=== PATIENT | male | born 1965 | race Two or more races ===

== ENCOUNTER 2017-02-22 14:02 | Inpatient (IN) | payer OTHER ==
[2017-02-22 17:05] VITALS: BMI 37.2
--- NOTE | 2017-02-22 18:37 | HP ---
CIWA Score - CIWA Score Nausea/Vomitin-Mild Nausea/No Vomiting Muscle Tremors: 4-Moderate,w/Arms Extend Anxiety: 4-Mod. Anxious/Guarded Agitation: 4-Moderately Restless Paroxysmal Sweats: 1-Minimal Palms Moist Orientation: 1-Uncertain about Date Tacttile Disturbances: 0-None Auditory Disturbances: 0-None Visual Disturbances: 0-None Headache: 0-None Present CIWA-Ar Total Score: 15 Admission ROS [facility] - HPI Chief Complaint: WITHDRAWAL SX Allergies/Adverse Reactions: Allergies Allergy/AdvReac Type Severity Reaction Status Date / Time No Known Allergies Allergy Verified 02/22/17 17:36 History of Present Illness: 52 YEARS OLD MALE WITH LONG HISTORY OF ALCOHOL DEPENDENCE GASTRIC BY PASS 1996 HAS DEPRESSION IS ADMITTED TO DETOX Exam Limitations: No Limitations - Ebola screening Have you traveled outside of the country in the last 21 days: No Have you had contact with anyone from an Ebola affected area: No Have you been sick,other than usual withdrawal symptoms: No Do you have a fever: No - Review of Systems Constitutional: Chills, Weight Stable EENT: reports: No Symptoms Reported Respiratory: reports: No Symptoms reported Cardiac: reports: No Symptoms Reported GI: reports: Nausea, Poor Fluid Intake, Abdominal cramping : reports: No Symptoms Reported Musculoskeletal: reports: No Symptoms Reported Integumentary: reports: Bruising, Change in Color (FOREHEAD FELL 02/[address] [facility] NEGATIVE CT HEAD) Neuro: reports: Tremors Endocrine: reports: No Symptoms Reported Hematology: reports: No Symptoms Reported Psychiatric: reports: Judgement Intact, Anxious, Depressed Other Systems: Reviewed and Negative Patient History - Patient Medical History Hx Anemia: No Hx Asthma: No Hx Chronic Obstructive Pulmonary Disease (COPD): No Hx Cancer: No Hx Cardiac Disorders: No Hx Congestive Heart Failure: No Hx Hypertension: No Hx Hypercholesterolemia: No Hx Pacemaker: No HX Cerebrovascular Accident: No Hx Seizures: No Hx Dementia: No Hx Diabetes: No Hx Gastrointestinal Disorders: No Hx Liver Disease: No Hx Genitourinary Disorders: No Hx Sexually Transmitted Disorders: No Hx Renal Disease (ESRD): No Hx Thyroid Disease: No Hx Human Immunodeficiency Virus (HIV): No Hx Hepatitis C: No Hx Depression: Yes Hx Suicide Attempt: No Hx Bipolar Disorder: No Hx Schizophrenia: No - Patient Surgical History Past Surgical History: Yes Hx Abdominal Surgery: Yes (1996) Anesthesia Reaction: No - PPD History Previous Implant?: Yes Documented Results: Negative w/o proof Implanted On Prior [facility] Admission?: No PPD to be Administered?: Yes - Smoking Cessation Smoking history: Former smoker Have you smoked in the past 12 months: No Aproximately how many cigarettes per day: 0 Hx Chewing Tobacco Use: No Initiated information on smoking cessation: No - Substance & Tx. History Hx Alcohol Use: Yes Hx Substance Use: No Substance Use Type: Alcohol Hx Substance Use Treatment: No - Substances Abused Alcohol Route: Oral Frequency: Daily Amount used: 20 BEERS X40 OZ Age of first use: 18 Date of Last Use: 02/22/17 Family Disease History - Family Disease History Family Disease History: Diabetes: Mother, [place]: Father (), Other: Father Admission Physical Exam [facility] - Vital Signs Vital Signs: Vital Signs - 24 hr 02/22/17 17:03 Temperature 98.0 F Pulse Rate 102 H Respiratory 18 Rate Blood Pressure 141/90 - Physical General Appearance: Yes: Appropriately Dressed, Moderate Distress, Alcohol on Breath, Obese, Tremorous, Irritable, Sweating, Anxious HEENTM: Yes: Hearing grossly Normal, Normal ENT Inspection, Normocephalic, Normal Voice Respiratory: Yes: Chest Non-Tender, Lungs Clear, Normal Breath Sounds, No Respiratory Distress, No Accessory Muscle Use Neck: Yes: Supple, Trachea in good position Breast: Yes: Breasts Symetrical Cardiology: Yes: Regular Rhythm, S1, S2, Tachycardia Abdominal: Yes: Normal Bowel Sounds, Non Tender, Soft Genitourinary: Yes: Within Normal Limits Back: Yes: Normal Inspection Musculoskeletal: Yes: full range of Motion, Gait Steady Extremities: Yes: Normal Inspection, Normal Range of Motion, Non-Tender, Tremors Neurological: Yes: Alert, Motor Strength 5/5, Normal Response, Depressed Affect Integumentary: Yes: Warm Lymphatic: Yes: Within Normal Limits - Diagnostic (1) Alcohol dependence with uncomplicated withdrawal Current Visit: Yes Status: Acute (2) Gastric bypass status for obesity Current Visit: Yes Status: Resolved Comment: 1996 (3) Depression (emotion) Current Visit: Yes Status: Suspected Qualifiers: Depression Type: dysthymia Qualified Code(s): F34.1 - Dysthymic disorder Cleared for Admission [facility] - Detox or Rehab [facility] Level of Care: Medically Managed Detox Regimen/Protocol: Librium BHS Breath Alcohol Content Breath Alcohol Content: 0.249 Urine Drug Screen - Results Drug Screen Negative: Yes
[2017-02-22] MEDS ORDERED: ACETAMINOPHEN 325 MG TABLET (FP) PO PRN (18:44)
[2017-02-22] MEDS ORDERED: guaiFENesin/D-METHORPHAN HB 10 ML UNIT-DOSE CUPS PO PRN (18:44)
[2017-02-22] MEDS ORDERED: P-EPHED 60MG/TRIPROLIDI 2.5MG TABLET PO PRN (18:44)
[2017-02-22] MEDS ORDERED: MAGNESIUM HYDROX 2400MG/30ML ORAL SUSPENSION 30 ML CUP PO PRN (18:44)
[2017-02-22] MEDS ORDERED: LOPERAMIDE HCL 2 MG CAPSULE PO PRN (18:44)
[2017-02-22] MEDS ORDERED: MAGNESIUM CITRATE 300 ML BOTTLE PO PRN (18:44)
[2017-02-22] MEDS ORDERED: IBUPROFEN 400 MG TABLET (FP) PO PRN (18:44)
[2017-02-22] MEDS ORDERED: MENTHOL/PHENOL 1 EACH UD MM PRN (18:44)
[2017-02-22] MEDS ORDERED: MAG HYDROX/AL HYDROX/SIMETH 30 ML UNIT-DOSE CUP PO PRN (18:44)
[2017-02-22] MEDS: chlordiazePOXIDE HCL 25 MG CAPSULE PO PRN (20:33)
[2017-02-22] MEDS: THIAMINE HCL 100 MG TABLET (FP) PO SCH (22:07)
[2017-02-22] MEDS: chlordiazePOXIDE HCL 25 MG CAPSULE PO SCH (22:07)
[2017-02-22 23:10] LABS: URINE APPEARANCE CLEAR; URINE BILIRUBIN NEGATIVE (NEGATIVE); URINE BLOOD NEGATIVE (NEGATIVE); URINE COLOR STRAW; URINE GLUCOSE (UA) 3+ (NEGATIVE); URINE KETONE NEGATIVE (NEGATIVE); URINE NITRITE NEGATIVE (NEGATIVE); URINE PROTEIN NEGATIVE (NEGATIVE); URINE UROBILINOGEN NEGATIVE mg/dL (0.2-1.0)
[2017-02-23] MEDS: chlordiazePOXIDE HCL 25 MG CAPSULE PO PRN ×3 (02:11→12:33)
[2017-02-23] MEDS: chlordiazePOXIDE HCL 25 MG CAPSULE PO SCH ×4 (05:59→22:00)
[2017-02-23] MEDS ORDERED: diphenhydrAMINE HCL 50 MG CAPSULE PO PRN (09:53)
[2017-02-23] MEDS: PRENATAL VITAMINS W/ FOLIC ACID TABLET (FP) PO SCH (10:02)
[2017-02-23 10:10] LABS: MCHC 31.8 g/dl (32.0-35.9); MEAN CELL VOLUME 78.6 fl (80-96); MEAN PLT VOLUME 9.1 fl (7.5-11.1); PLATELET COUNT 207 K/MM3 (134-434); WHITE BLOOD COUNT 6.1 K/mm3 (4.0-10.0)
[2017-02-23] MEDS ORDERED: cloNIDine HCL 0.1 MG TABLET PO ONE (10:15)
[2017-02-23 10:29] LABS: URINE LEUK ESTERASE Negative (NEGATIVE)
[2017-02-23 10:30] LABS: ALBUMIN 3.3 g/dl (3.4-5.0); ALK PHOS 98 U/L (45-117); ANION GAP 10 (8-16); BILIRUBIN,TOTAL 0.9 mg/dL (0.2-1.0); CALCIUM 7.8 mg/dL (8.5-10.1); CO2 25 mmol/L (21-32); CREATININE 0.8 mg/dL (0.7-1.3); GLUCOSE,RANDOM 179 mg/dL (74-106); SGOT/AST 39 U/L (15-37); SGPT/ALT 37 U/L (12-78); TOT PROT 6.9 g/dl (6.4-8.2)
--- NOTE | 2017-02-23 11:26 | CONSULT ---
[facility] Psychiatric Consult - Data Date of interview: 02/23/17 Admission source: [facility] Identifying data: First admission to [facility] for this 52 y/o male seeking detox treatment on for alcohol dependence.Patient is single,a father of one,domiciled and employed. Substance Abuse History: Patient admits to active use of alcohol daily as detailed in the current [facility] report.See details. Smoking history: Former smoker. Have you smoked in the past 12 months: No. Aproximately how many cigarettes per day: 0. Hx Chewing Tobacco Use: No. Initiated information on smoking cessation: No. - Substance & Tx. History. Hx Alcohol Use: Yes. Hx Substance Use: No. Substance Use Type: Alcohol. Hx Substance Use Treatment: No. - Substances Abused. Alcohol. Route: Oral. Frequency: Daily. Amount used: 20 BEERS X40 OZ. Age of first use: 18. Date of Last Use: 02/22/17 Medical History: Diabetes mellitus and a history of gastric bypass. Psychiatric History: Patient denies. Physical/Sexual Abuse/Trauma History: Patient denies. Additional Comment: Drug Screen is negative. Mental Status Exam - Mental Status Exam Alert and Oriented to: Time, Place, Person Cognitive Function: Good Patient Appearance: Well Groomed Mood: Hopeful, Euthymic Affect: Appropriate, Normal Range Patient Behavior: Fatigued, Cooperative Speech Pattern: Clear Voice Loudness: Normal Thought Process: Intact, Goal Oriented Thought Disorder: Not Present Hallucinations: Denies Suicidal Ideation: Denies Homicidal Ideation: Denies Insight/Judgement: Poor Sleep: Poorly, Difficulty falling asleep Appetite: Good Muscle strength/Tone: Normal Gait/Station: Normal Psychiatric Findings - Problem List (Gem 1, 2,3) (1) Alcohol dependence with uncomplicated withdrawal Current Visit: Yes Status: Acute (2) Alcohol-induced mood disorder Current Visit: Yes Status: Suspected (3) Insomnia Current Visit: Yes Status: Acute - Initial Treatment Plan Initial Treatment Plan: Psychoeducation.Sleep hygiene.Detoxification in progress.Ambien 10 mg po hs prn.Side effects/benefits discussed with the patient.Observation.
[2017-02-23] MEDS: BACITRACIN 0.9 GM PACKET TP SCH ×2 (12:33→22:00)
[2017-02-23] MEDS: CYCLOBENZAPRINE HCL 10 MG TABLET (FP) PO PRN (12:36)
--- NOTE | 2017-02-23 13:08 | PN ---
[facility] CIWA - CIWA Score Nausea/Vomitin-No Nausea/No Vomiting Muscle Tremors: 4-Moderate,w/Arms Extend Anxiety: 5 Agitation: 4-Moderately Restless Paroxysmal Sweats: 3 Orientation: 0-Oriented Tacttile Disturbances: 3-Moderate Itch/Numb/Burn Auditory Disturbances: 0-None Visual Disturbances: 0-None Headache: 0-None Present CIWA-Ar Total Score: 19 S Progress Note (SOAP) Subjective: Tremors, Sweating, Body aches, Anxious, Interrupted Sleep. Objective: PT. A & O X 3, OBSERVED AMBULATING ON UNIT. NO ACUTE DISTRESS. 02/23/17 13:05 Vital Signs Temperature 96.6 F L 02/23/17 09:42 Pulse Rate 101 H 02/23/17 09:42 Respiratory Rate 20 02/23/17 09:42 Blood Pressure 145/84 02/23/17 09:42 O2 Sat by Pulse Oximetry (%) Laboratory Tests 02/22/17 02/23/17 02/23/17 23:00 07:00 07:00 WBC 6.1 RBC 5.39 Hgb 13.5 Hct 42.4 MCV 78.6 L MCH 25.0 L MCHC 31.8 L RDW 15.0 Plt Count 207 MPV 9.1 Sodium 139 Potassium 4.4 Chloride 104 Carbon Dioxide 25 Anion Gap 10 BUN 13 Creatinine 0.8 Creat Clearance w eGFR > 60 Random Glucose 179 H Calcium 7.8 L Total Bilirubin 0.9 AST 39 H ALT 37 Alkaline Phosphatase 98 Total Protein 6.9 Albumin 3.3 L Urine Color Straw Urine Appearance Clear Urine pH 5.0 Ur Specific [place] 1.005 Urine Protein Negative Urine Glucose (UA) 3+ H Urine Ketones Negative Urine Blood Negative Urine Nitrite Negative Urine Bilirubin Negative Urine Urobilinogen Negative Ur Leukocyte Esterase Negative RPR Titer 02/23/17 07:00 WBC RBC Hgb Hct MCV MCH MCHC RDW Plt Count MPV Sodium Potassium Chloride Carbon Dioxide Anion Gap BUN Creatinine Creat Clearance w eGFR Random Glucose Calcium Total Bilirubin AST ALT Alkaline Phosphatase Total Protein Albumin Urine Color Urine Appearance Urine pH Ur Specific [place] Urine Protein Urine Glucose (UA) Urine Ketones Urine Blood Urine Nitrite Urine Bilirubin Urine Urobilinogen Ur Leukocyte Esterase RPR Titer Nonreactive LABS NOTED. Assessment: 02/23/17 13:07 WITHDRAWAL SYMPTOMS. Plan: CONTINUE DETOX. CLONIDINE, 01. MG PO X 1 FOR DETOX SYMPTOMS. FLEXERIL PRN FOR BODY ACHES/ MUSCLE SPASMS. INCREASE DAILY PO FLUID INTAKE.
[2017-02-23] MEDS: THIAMINE HCL 100 MG TABLET (FP) PO SCH (22:00)
[2017-02-23] MEDS: ZOLPIDEM TARTRATE 10 MG TABLET (PARK CARE ONLY) PO PRN (22:01)
[2017-02-24] MEDS: chlordiazePOXIDE HCL 25 MG CAPSULE PO SCH ×3 (05:04→16:56)
[2017-02-24] MEDS: CYCLOBENZAPRINE HCL 10 MG TABLET (FP) PO PRN ×2 (07:15→19:45)
[2017-02-24] MEDS: chlordiazePOXIDE HCL 25 MG CAPSULE PO PRN ×3 (07:15→19:44)
--- NOTE | 2017-02-24 07:59 | EKG ---
Test Reason : Blood Pressure : / mmHG Vent. Rate : 097 BPM Atrial Rate : 097 BPM P-R Int : 198 ms QRS Dur : 108 ms QT Int : 376 ms P-R-T Axes : 041 014 050 degrees QTc Int : 477 ms NORMAL SINUS RHYTHM INFERIOR INFARCT , AGE UNDETERMINED ABNORMAL ECG NO PREVIOUS ECGS AVAILABLE Confirmed by MD Noyola Daniel ([id number]) on 02/23/2017 3:03:17 PM Also confirmed by MD Noyola Daniel ([id number]), make up editor ZULEYKA COLLIER ([id number]) on 02/24/2017 7:59:06 AM Referred By: Tin GUZMAN Confirmed By:Zuleyka Noyola MD
--- NOTE | 2017-02-24 08:27 | EKG ---
Test Reason : Blood Pressure : / mmHG Vent. Rate : 098 BPM Atrial Rate : 098 BPM P-R Int : 178 ms QRS Dur : 100 ms QT Int : 378 ms P-R-T Axes : 040 010 059 degrees QTc Int : 482 ms NORMAL SINUS RHYTHM POSSIBLE INFERIOR INFARCT (CITED ON OR BEFORE 22-FEB-2017) ABNORMAL ECG WHEN COMPARED WITH ECG OF 22-FEB-2017 21:43, NO SIGNIFICANT CHANGE WAS FOUND Confirmed by MD Noyola Daniel ([id number]) on 02/23/2017 4:47:30 PM Also confirmed by MD Noyola Daniel ([id number]), film and video editor ZULEYKA COLLIER ([id number]) on 02/24/2017 8:27:13 AM Referred By: Tin GUZMAN Confirmed By:Zuleyka Noyola MD
[2017-02-24] MEDS: BACITRACIN 0.9 GM PACKET TP SCH ×2 (10:07→22:05)
[2017-02-24] MEDS: PRENATAL VITAMINS W/ FOLIC ACID TABLET (FP) PO SCH (10:07)
--- NOTE | 2017-02-24 11:55 | PN ---
[facility] CIWA - CIWA Score Nausea/Vomitin-No Nausea/No Vomiting Muscle Tremors: 4-Moderate,w/Arms Extend Anxiety: 5 Agitation: 4-Moderately Restless Paroxysmal Sweats: No Perspiration Orientation: 2-Disoriented Date<2 days Tacttile Disturbances: 2-Mild Itch/Numbness/Burn Auditory Disturbances: 0-None Visual Disturbances: 0-None Headache: 0-None Present CIWA-Ar Total Score: 17 S Progress Note (SOAP) Subjective: Tremors, Stomach Cramping, Body Aches, Anxious, Interrupted Sleep. Objective: PT. A & O X 2 (UNCERTAIN ABOUT DAY/ DATE). PT. OBSERVED AMBULATING ON UNIT. NO ACUTE DISTRESS. 02/24/17 11:54 Vital Signs Temperature 96.7 F L 02/24/17 08:55 Pulse Rate 91 H 02/24/17 08:55 Respiratory Rate 20 02/24/17 08:55 Blood Pressure 152/78 02/24/17 08:55 O2 Sat by Pulse Oximetry (%) Laboratory Tests 02/22/17 02/23/17 02/23/17 23:00 07:00 07:00 WBC 6.1 RBC 5.39 Hgb 13.5 Hct 42.4 MCV 78.6 L MCH 25.0 L MCHC 31.8 L RDW 15.0 Plt Count 207 MPV 9.1 Sodium 139 Potassium 4.4 Chloride 104 Carbon Dioxide 25 Anion Gap 10 BUN 13 Creatinine 0.8 Creat Clearance w eGFR > 60 Random Glucose 179 H Calcium 7.8 L Total Bilirubin 0.9 AST 39 H ALT 37 Alkaline Phosphatase 98 Total Protein 6.9 Albumin 3.3 L Urine Color Straw Urine Appearance Clear Urine pH 5.0 Ur Specific [place] 1.005 Urine Protein Negative Urine Glucose (UA) 3+ H Urine Ketones Negative Urine Blood Negative Urine Nitrite Negative Urine Bilirubin Negative Urine Urobilinogen Negative Ur Leukocyte Esterase Negative RPR Titer 02/23/17 07:00 WBC RBC Hgb Hct MCV MCH MCHC RDW Plt Count MPV Sodium Potassium Chloride Carbon Dioxide Anion Gap BUN Creatinine Creat Clearance w eGFR Random Glucose Calcium Total Bilirubin AST ALT Alkaline Phosphatase Total Protein Albumin Urine Color Urine Appearance Urine pH Ur Specific [place] Urine Protein Urine Glucose (UA) Urine Ketones Urine Blood Urine Nitrite Urine Bilirubin Urine Urobilinogen Ur Leukocyte Esterase RPR Titer Nonreactive LABS NOTED. Assessment: 02/24/17 11:54 WITHDRAWAL SYMPTOMS. Plan: CONTINUE DETOX. BGM ACBK, HGB A1C AND REPEAT UA FOR ELEVATED ADMISSION RANDOM GLUCOSE AND URINE GLUCOSE LEVELS.
--- NOTE | 2017-02-24 21:53 | PN ---
[facility] Progress Note Note: received nurse call bp 142/91
[2017-02-24] MEDS: THIAMINE HCL 100 MG TABLET (FP) PO SCH (22:05)
[2017-02-24] MEDS: chlordiazePOXIDE 5 MG CAPSULE PO SCH (22:05)
[2017-02-24] MEDS: ZOLPIDEM TARTRATE 10 MG TABLET (PARK CARE ONLY) PO PRN (22:06)
[2017-02-24 23:28] LABS: URINE APPEARANCE CLEAR; URINE BILIRUBIN NEGATIVE (NEGATIVE); URINE BLOOD NEGATIVE (NEGATIVE); URINE COLOR STRAW; URINE GLUCOSE (UA) 3+ (NEGATIVE); URINE KETONE NEGATIVE (NEGATIVE); URINE LEUK ESTERASE NEGATIVE (NEGATIVE); URINE NITRITE NEGATIVE (NEGATIVE); URINE PROTEIN NEGATIVE (NEGATIVE); URINE UROBILINOGEN NEGATIVE mg/dL (0.2-1.0)
[2017-02-25] MEDS: CYCLOBENZAPRINE HCL 10 MG TABLET (FP) PO PRN ×2 (05:11→19:32)
[2017-02-25] MEDS: chlordiazePOXIDE 5 MG CAPSULE PO SCH ×3 (05:11→17:14)
[2017-02-25] MEDS: BACITRACIN 0.9 GM PACKET TP SCH ×2 (10:07→22:06)
[2017-02-25] MEDS: PRENATAL VITAMINS W/ FOLIC ACID TABLET (FP) PO SCH (10:07)
[2017-02-25 13:09] LABS: URINE LEUK ESTERASE Negative (NEGATIVE)
[2017-02-25] MEDS: chlordiazePOXIDE HCL 25 MG CAPSULE PO PRN (13:39)
--- NOTE | 2017-02-25 15:05 | PN ---
S Progress Note (SOAP) Subjective: Fatigue, Anxious. Objective: PT. A & O X 3, OBSERVED AMBULATING ON UNIT. NO ACUTE DISTRESS. 02/25/17 15:03 Vital Signs Temperature 97.1 F L 02/25/17 12:58 Pulse Rate 95 H 02/25/17 12:58 Respiratory Rate 20 02/25/17 12:58 Blood Pressure 138/78 02/25/17 12:58 O2 Sat by Pulse Oximetry (%) Laboratory Tests 02/22/17 02/23/17 02/23/17 23:00 07:00 07:00 WBC 6.1 RBC 5.39 Hgb 13.5 Hct 42.4 MCV 78.6 L MCH 25.0 L MCHC 31.8 L RDW 15.0 Plt Count 207 MPV 9.1 Sodium 139 Potassium 4.4 Chloride 104 Carbon Dioxide 25 Anion Gap 10 BUN 13 Creatinine 0.8 Creat Clearance w eGFR > 60 POC Glucometer Random Glucose 179 H Hemoglobin A1c % Calcium 7.8 L Total Bilirubin 0.9 AST 39 H ALT 37 Alkaline Phosphatase 98 Total Protein 6.9 Albumin 3.3 L Urine Color Straw Urine Appearance Clear Urine pH 5.0 Ur Specific [place] 1.005 Urine Protein Negative Urine Glucose (UA) 3+ H Urine Ketones Negative Urine Blood Negative Urine Nitrite Negative Urine Bilirubin Negative Urine Urobilinogen Negative Ur Leukocyte Esterase Negative RPR Titer 02/23/17 02/24/17 02/25/17 07:00 21:45 05:12 WBC RBC Hgb Hct MCV MCH MCHC RDW Plt Count MPV Sodium Potassium Chloride Carbon Dioxide Anion Gap BUN Creatinine Creat Clearance w eGFR POC Glucometer 166 Random Glucose Hemoglobin A1c % Calcium Total Bilirubin AST ALT Alkaline Phosphatase Total Protein Albumin Urine Color Straw Urine Appearance Clear Urine pH 6.0 Ur Specific [place] 1.014 Urine Protein Negative Urine Glucose (UA) 3+ H Urine Ketones Negative Urine Blood Negative Urine Nitrite Negative Urine Bilirubin Negative Urine Urobilinogen Negative Ur Leukocyte Esterase Negative RPR Titer Nonreactive 02/25/17 07:00 WBC RBC Hgb Hct MCV MCH MCHC RDW Plt Count MPV Sodium Potassium Chloride Carbon Dioxide Anion Gap BUN Creatinine Creat Clearance w eGFR POC Glucometer Random Glucose Hemoglobin A1c % 8.4 H Calcium Total Bilirubin AST ALT Alkaline Phosphatase Total Protein Albumin Urine Color Urine Appearance Urine pH Ur Specific [place] Urine Protein Urine Glucose (UA) Urine Ketones Urine Blood Urine Nitrite Urine Bilirubin Urine Urobilinogen Ur Leukocyte Esterase RPR Titer LABS NOTED. RESULTS OF BGM ACBK, HGB A1C, AND REPEAT UA NOTED. 02/25/17 15:04 Assessment: 02/25/17 15:03 WITHDRAWAL SYMPTOMS. Plan: CONTINUE DETOX. INCREASE DAILY PO FLUID INTAKE.
[2017-02-25 21:55] VITALS: TEMP 97
[2017-02-25] MEDS: ZOLPIDEM TARTRATE 10 MG TABLET (PARK CARE ONLY) PO PRN (22:06)
[2017-02-25] MEDS: chlordiazePOXIDE HCL 10 MG CAPSULE PO SCH (22:06)
[2017-02-25] MEDS: THIAMINE HCL 100 MG TABLET (FP) PO SCH (22:06)
[2017-02-26] MEDS: CYCLOBENZAPRINE HCL 10 MG TABLET (FP) PO PRN (05:36)
[2017-02-26] MEDS: chlordiazePOXIDE HCL 10 MG CAPSULE PO SCH (05:36)
[2017-02-26 06:17] VITALS: BP 145/83; PULSE 83
--- NOTE | 2017-02-26 16:22 | DS ---
[facility] Detox Discharge Summary Admission Date: 02/22/17 Discharge Date: 02/26/17 - History Present History: Alcohol Dependence Additional Comments: PATIENT ELECTING TO GO HOME AND DECLINES REFERRAL FOR AFTERCARE. PATIENT ADVISED TO CONSIDER LOCAL 12-STEP / AA OUTPATIENT SUPPORT GROUP MEETINGS FOR AFTERCARE. PATIENT WAS DISCHARGED FROM DETOX UNIT IN STABLE MEDICAL CONDITION. Pertinent Past History: Insomnia, Depression, History of Gastric Bypass Surgery. - Physical Exam Results Vital Signs: Vital Signs Temperature 97 F L 02/26/17 06:17 Pulse Rate 83 02/26/17 06:17 Respiratory Rate 20 02/26/17 06:17 Blood Pressure 145/83 02/26/17 06:17 O2 Sat by Pulse Oximetry (%) Pertinent Admission Physical Exam Findings: WITHDRAWAL SYMPTOMS. Laboratory Tests 02/22/17 02/23/17 02/23/17 23:00 07:00 07:00 WBC 6.1 RBC 5.39 Hgb 13.5 Hct 42.4 MCV 78.6 L MCH 25.0 L MCHC 31.8 L RDW 15.0 Plt Count 207 MPV 9.1 Sodium 139 Potassium 4.4 Chloride 104 Carbon Dioxide 25 Anion Gap 10 BUN 13 Creatinine 0.8 Creat Clearance w eGFR > 60 POC Glucometer Random Glucose 179 H Hemoglobin A1c % Calcium 7.8 L Total Bilirubin 0.9 AST 39 H ALT 37 Alkaline Phosphatase 98 Total Protein 6.9 Albumin 3.3 L Urine Color Straw Urine Appearance Clear Urine pH 5.0 Ur Specific [place] 1.005 Urine Protein Negative Urine Glucose (UA) 3+ H Urine Ketones Negative Urine Blood Negative Urine Nitrite Negative Urine Bilirubin Negative Urine Urobilinogen Negative Ur Leukocyte Esterase Negative RPR Titer 02/23/17 02/24/17 02/25/17 07:00 21:45 05:12 WBC RBC Hgb Hct MCV MCH MCHC RDW Plt Count MPV Sodium Potassium Chloride Carbon Dioxide Anion Gap BUN Creatinine Creat Clearance w eGFR POC Glucometer 166 Random Glucose Hemoglobin A1c % Calcium Total Bilirubin AST ALT Alkaline Phosphatase Total Protein Albumin Urine Color Straw Urine Appearance Clear Urine pH 6.0 Ur Specific [place] 1.014 Urine Protein Negative Urine Glucose (UA) 3+ H Urine Ketones Negative Urine Blood Negative Urine Nitrite Negative Urine Bilirubin Negative Urine Urobilinogen Negative Ur Leukocyte Esterase Negative RPR Titer Nonreactive 02/25/17 07:00 WBC RBC Hgb Hct MCV MCH MCHC RDW Plt Count MPV Sodium Potassium Chloride Carbon Dioxide Anion Gap BUN Creatinine Creat Clearance w eGFR POC Glucometer Random Glucose Hemoglobin A1c % 8.4 H Calcium Total Bilirubin AST ALT Alkaline Phosphatase Total Protein Albumin Urine Color Urine Appearance Urine pH Ur Specific [place] Urine Protein Urine Glucose (UA) Urine Ketones Urine Blood Urine Nitrite Urine Bilirubin Urine Urobilinogen Ur Leukocyte Esterase RPR Titer LABS NOTED. - Treatment Hospital Course: Detox Protocol Followed, Detoxed Safely, Responded well, Discharged Condition Good Patient has Accepted a Rehab Referral to: PT. DECLINES. PT ADVISED TO CONSIDER LOCAL 12-STEP/AA SUPPORT GROUPS. - Medication Discharge Medications: Ambulatory Orders NK [No Known Home Medication] 02/22/17 - Diagnosis (1) Alcohol dependence with uncomplicated withdrawal Status: Acute (2) Insomnia Status: Acute Qualifiers: Insomnia type: unspecified Qualified Code(s): G47.00 - Insomnia, unspecified (3) Alcohol-induced mood disorder Status: Suspected (4) Gastric bypass status for obesity Status: Resolved - AMA Did Patient Leave Against Medical Advice: No
== END 2017-02-26 09:19 | disposition home or self-care (01) | DRG 775 ==
LOC: YASAS 14:02 → Y3N 18:02
PROVIDERS: ADMIT Internal Medicine; ATTEND Internal Medicine
PROC: HZ2ZZZZ Detoxification Services for Substance Abuse Treatment (ICD-10-PCS; principal; 2017-02-22)
DX: F10.230 Alcohol dependence with withdrawal, uncomplicated (principal); F10.24 Alcohol dependence with alcohol-induced mood disorder; F34.1 Dysthymic disorder; G47.00 Insomnia, unspecified; Z98.84 Bariatric surgery status
CPT/HCPCS: 36415; 80053; 81003; 83036; 85027; 86593; 93005; 93010

== ENCOUNTER → 2018-04-26 | Emergency (ER) | payer OTHER ==
--- NOTE | 2018-04-26 14:45 | PDOC ---
History of Present Illness - General Chief Complaint: Alcohol intoxication Stated Complaint: Alcohol intoxication Time Seen by Provider: 04/26/18 14:35 History Source: Patient Exam Limitations: No Limitations - History of Present Illness Initial Comments: 04/26/18 14:55 Patient eloped from the department. Prior to his elopement, the patient had a steady gait, ambulating on his own volition, produced logical and coherent speech without deficits, and understood his disease process and the reasonings for his emergency department evaluation. Past History - Past Medical History Allergies/Adverse Reactions: Allergies Allergy/AdvReac Type Severity Reaction Status Date / Time No Known Allergies Allergy Verified 02/22/17 17:36 Home Medications: Ambulatory Orders NK [No Known Home Medication] 02/22/17 Anemia: No Asthma: No Cancer: No Cardiac Disorders: No CVA: No COPD: No CHF: No Dementia: No Diabetes: No GI Disorders: No Disorders: No HTN: No Hypercholesterolemia: No Kidney Stones: No Liver Disease: No Seizures: No Thyroid Disease: No - Surgical History Abdominal Surgery: Yes (1996) - Reproductive History Testicular Surgery: No - Suicide/Smoking/Psychosocial Hx Smoking History: Former smoker Have you smoked in the past 12 months: No Number of Cigarettes Smoked Daily: 0 Hx Alcohol Use: Yes Drug/Substance Use Hx: No Substance Use Type: Alcohol Hx Substance Use Treatment: No Review of Systems - Review of Systems Able to Perform ROS?: No (patient eloped) *Physical Exam - Physical Exam General Appearance: Yes: Nourished, Appropriately Dressed, Other (Unable to do a full exam given the patient eloped from the department). No: Apparent Distress, Disheveled Medical Decision Making - Medical Decision Making 04/27/18 14:44 Patient eloped from the department *DC/Admit/Observation/Transfer Diagnosis at time of Disposition: Eloped from emergency department - Referrals - Patient Instructions - Post Discharge Activity
[2018-04-26 14:54] VITALS: BP 106/47; PULSE 96; TEMP 98.3; BMI 39.5
--- NOTE | 2018-04-26 14:59 | PDOC ---
Attending Attestation - Resident Resident Name: Lavelle Mo - ED Attending Attestation I have performed the following: I have examined & evaluated the patient, The case was reviewed & discussed with the resident, I agree w/resident's findings & plan, Exceptions are as noted - HPI HPI: 04/26/18 14:55 53 M with h/o ETOH abuse presents to ED for alcohol intoxication, seeking detox. At time of my evaluation, pt is ambulatory in ED with steady gait. No slurred speech, awake and alert. Pt states that he is interested in going to detox at [facility]. Denies any complaints at this time. - Physicial Exam PE: 04/26/18 14:56 GENERAL: Awake, alert, and fully oriented, in no acute distress. HEAD: No signs of trauma EYES: PERRLA, EOMI, sclera anicteric, conjunctiva clear ENT: Auricles normal inspection, hearing grossly normal, nares patent, oropharynx clear without exudates. Moist mucosa NECK: Nontender, no stepoffs, Normal ROM, supple, no lymphadenopathy, JVD, or masses LUNGS: Breath sounds equal, clear to auscultation bilaterally. No wheezes, and no crackles HEART: Regular rate and rhythm, normal S1 and S2, no murmurs, rubs or gallops ABDOMEN: Soft, nontender, normoactive bowel sounds. No guarding, no rebound. No masses EXTREMITIES: Normal range of motion, no edema. No clubbing or cyanosis. No cords, erythema, or tenderness NEUROLOGICAL: Cranial nerves II through XII intact. 5/5 strength and sensation in all extremities, Normal speech, normal gait, normal cerebellar function SKIN: Warm, Dry, normal turgor, no rashes or lesions noted. - Medical Decision Making 04/26/18 14:56 53 M brought in for ETOH intoxication, now clinically sober and requesting detox. Pt witnessed by other patient in ED leaving department. At time of initial ED evaluation, pt was clinically sober, ambulatory with steady gait, denying SI/HI/AVH. I believe pt was competent, of sound mind, and had capacity to make his own medical decisions.
== END | disposition left against medical advice (07) ==
LOC: JER 14:24
DX: F10.120 Alcohol abuse with intoxication, uncomplicated (principal)
CPT/HCPCS: 99281-25

== ENCOUNTER 2022-04-22 20:02 | Emergency (ER) | payer OTHER ==
[2022-04-22 20:21] VITALS: BP 110/64; PULSE 111; RESP 18; TEMP 97; BMI 25.0
[2022-04-22] MEDS ORDERED: KETOROLAC TROMETHAMINE 30 MG/1 ML VIAL IM ONE (20:27)
[2022-04-22] MEDS ORDERED: METHOCARBAMOL 500 MG TABLET PO ONE (20:28)
[2022-04-22] MEDS ORDERED: LIDOCAINE 5% TOPICAL PATCH TP ONE (20:28)
[2022-04-22] MEDS ORDERED: METHOCARBAMOL 500 MG TABLET ONE (20:32)
[2022-04-22] MEDS ORDERED: KETOROLAC TROMETHAMINE 15 MG/ML VIAL ONE (20:33)
[2022-04-22] MEDS ORDERED: LIDOCAINE 5% TOPICAL PATCH ONE (20:33)
[2022-04-22] MEDS ORDERED: LIDOCAINE PATCH REMOVAL MC SCH (22:00)
== END 2022-04-22 21:45 | disposition left against medical advice (07) ==
LOC: JER 20:02
DX: M54.32 Sciatica, left side (principal)
CPT/HCPCS: 82962; 99283-25